=== PATIENT | female | born 1960 | race Caucasian/White ===

== ENCOUNTER → 2017-02-18 | Day surgery (SDC) | payer BC ==
[~2017-02-18] MED LIST: BREO IH; EVAMIST8.1 ML TOP; FENTANYL CITRATE/PF 100MCG/2 ML INJ ONE; LIDOCAINE HCL 2% LOCAL INJ 5 ML SDV VIAL INJ ONE; METOPROLOL SUCC25 MG PO; MIDAZOLAM HCL 2 MG/2 ML VIAL ONE; ONDANSETRON HCL INJ 2 MG/ML VIAL ONE; PANTOPRAZOLE SO40 MG PO; PROAIR HFA INH8.5 GM INH; PROGESTERONE100 MG PO; PROPOFOL IV EMULSION 10 MG/ML 50 ML VIAL ONE; SINGULAIR10 MG PO; SUMATRIPTAN SUC25 MG PO
--- NOTE | 2017-02-18 15:24 | Operative Report ---
DATE OF PROCEDURE: February 18, 2017 REFERRING PHYSICIAN: Dr. Aileen Joy. PROCEDURE PERFORMED: Esophagogastroduodenoscopy with esophageal dilatation. INDICATIONS FOR PROCEDURE: Dysphagia. MEDICATION: Patient was done under MAC. Please see anesthesiologist's note. PROCEDURE: With patient in the left lateral decubitus position, the flexible fiberoptic Olympus gastroscope was introduced into the esophagus under direct visualization without any difficulty. There was some patchy erythema noted in the distal esophagus. There was a minute nodule noted at the GE junction, and that was biopsied. Also, a mild stricture was noted at the GE junction, and that was dilated to size 52-[place] Bian[place]. The scope was then advanced with ease into the stomach. Mucosa overlying the antrum and the body revealed some diffuse erythema and low-grade edema, and biopsies were obtained and sent to stain for H. pylori. Pylorus appeared to be of normal contour and shape, was intubated with ease, and the scope was advanced all the way to the 2nd portion of the duodenum. The scope was then withdrawn slowly. Mucosa overlying the proximal 2nd portion and the duodenal bulb appeared to be within normal limits. The scope was then withdrawn back into the stomach and retroflexed, and mucosa overlying the fundus and the cardia appeared to be within normal limits. The scope was then straightened out. The stomach was decompressed. The scope was subsequently withdrawn. Patient tolerated procedure well. IMPRESSION: 1. Distal esophagitis. 2. Esophageal stricture at gastroesophageal junction dilated to size 52-[place]. 3. Nodule, gastroesophageal junction, biopsied. 4. Gastritis biopsied. Biopsies sent to stain for H. pylori. PLAN: Follow up histology. Initiate Protonix 40 mg 1 p.o. q.a.m. a.c. Job#: [id number] EV cc:AILEEN JOY MD
== END | disposition home or self-care (01) ==
LOC: OR 11:40
PROVIDERS: ATTEND Internal Medicine Gastroenterology
DX: K22.2 Esophageal obstruction (principal); K29.70 Gastritis, unspecified, without bleeding; K20.9 Esophagitis, unspecified; K31.89 Other diseases of stomach and duodenum; J45.909 Unspecified asthma, uncomplicated; Z01.810 Encounter for preprocedural cardiovascular examination; Z80.0 Family history of malignant neoplasm of digestive organs
CPT/HCPCS: 43239; 43450; 93005; J2001; J2250; J2405

== ENCOUNTER → 2017-03-07 | Day surgery (SDC) | payer BC ==
[~2017-03-07] MED LIST changes: +HYOSCYAMINE SULFATE 0.5 MG/ML AMP ONE; -ONDANSETRON HCL INJ 2 MG/ML VIAL ONE
--- NOTE | 2017-03-07 14:39 | Operative Report ---
DATE OF PROCEDURE: March 07, 2017 REFERRING PHYSICIAN: Dr. Aileen Joy PROCEDURE PERFORMED: Colonoscopy and polypectomy. INDICATIONS FOR COLONOSCOPY: Colorectal cancer screening. MEDICATION: Patient was done under MAC. Please see anesthesiologist's note. PROCEDURE: With the patient in the left lateral decubitus position, the flexible fiberoptic Olympus colonoscope was inserted into the rectum with ease and advanced all the way to the cecum. The scope was then withdrawn slowly. Mucosa overlying the cecum, ascending colon, transverse colon, and descending colon grossly appeared to be within normal limits. One polyp was hot biopsied from the sigmoid colon. There was some patchy areas of erythema and low-grade edema noted in the sigmoid colon, and biopsies were obtained. A solitary minute ulcer was also noted in the sigmoid that was biopsied. The rectum appeared to be within normal limits. The scope was then retroflexed into the distal rectum and small internal hemorrhoids were noted, none of which was actively bleeding. The scope was then straightened. The rectosigmoid area, as well as the distal rectal area were decompressed. The scope was subsequently withdrawn. Patient tolerated the procedure well. IMPRESSION 1. Sigmoid colon polyp, hot biopsied. 2. Ulcer of sigmoid colon, biopsied. 3. Mild patchy sigmoiditis. 4. Small internal hemorrhoids, none actively bleeding. PLAN: Follow up histology. Initiate high-fiber and low-fat diet. Initiate high-fiber supplement. Check TSH as patient has been complaining of increasing constipation. Patient will need a followup colonoscopy in 3 years. Job#: [id number] RI cc: AILEEN JOY MD
== END | disposition home or self-care (01) ==
LOC: OR 07:14
PROVIDERS: ATTEND Internal Medicine Gastroenterology
DX: Z12.11 Encounter for screening for malignant neoplasm of colon (principal); K63.5 Polyp of colon; K52.9 Noninfective gastroenteritis and colitis, unspecified; K63.3 Ulcer of intestine; K59.00 Constipation, unspecified; K64.8 Other hemorrhoids; K29.70 Gastritis, unspecified, without bleeding; K21.9 Gastro-esophageal reflux disease without esophagitis; K22.8 Other specified diseases of esophagus; K20.8 Other esophagitis; I10 Essential (primary) hypertension; J45.909 Unspecified asthma, uncomplicated; Z80.0 Family history of malignant neoplasm of digestive organs
CPT/HCPCS: 36415; 45380; 45384; 84443; J1980; J2001; J2250

== ENCOUNTER → 2021-05-03 | Day surgery (SDC) | payer BC ==
[~2021-05-03] MED LIST changes: -FENTANYL CITRATE/PF 100MCG/2 ML INJ ONE; -HYOSCYAMINE SULFATE 0.5 MG/ML AMP ONE; +HYOSCYAMINE SULFATE 0.5 MG/ML INJ ONE; +PROPOFOL IV EMULSION 10 MG/ML 20 ML VIAL ONE; -PROPOFOL IV EMULSION 10 MG/ML 50 ML VIAL ONE
[2021-05-03 09:15] VITALS: BP 102/63
== END | disposition home or self-care (01) ==
LOC: OR 06:58
PROVIDERS: ATTEND Internal Medicine Gastroenterology
DX: Z09 Encounter for follow-up examination after completed treatment for conditions other than malignant neoplasm (principal); K63.5 Polyp of colon; K64.8 Other hemorrhoids; U07.1 COVID-19; J45.909 Unspecified asthma, uncomplicated; I49.3 Ventricular premature depolarization; G43.909 Migraine, unspecified, not intractable, without status migrainosus; Z88.0 Allergy status to penicillin; Z01.810 Encounter for preprocedural cardiovascular examination; Z01.812 Encounter for preprocedural laboratory examination; Z79.899 Other long term (current) drug therapy
CPT/HCPCS: 45380; 93005; J1980; J2001; J2250; J2704; U0002; 45378

== ENCOUNTER → 2024-01-25 | Day surgery (SDC) | payer BC, OTHER ==
[~2024-01-25] MED LIST changes: +ADVAIR 100-501 EACH INH; +CALCIUM CARBON500 MG PO; +DOTTI1 EAC2 TD; -LIDOCAINE HCL 2% LOCAL INJ 5 ML SDV VIAL INJ ONE; -MIDAZOLAM HCL 2 MG/2 ML VIAL ONE; +MULTI-VITAMIN1 EACH PO; -PROPOFOL IV EMULSION 10 MG/ML 20 ML VIAL ONE; +TURMERIC 450-51 EACH; +VITAMIN D3 COM1 EACH PO
[2024-01-25] MEDS: LACTATED RINGER'S 1,000 ML ONE (11:50)
[2024-01-25 15:10] VITALS: BP 128/84; PULSE 86; RESP 18; O2SAT 98
[2024-01-25 16:23] LABS: CDIFF AG QUIK CHEK NEGATIVE (NEGATIVE); CDIFF TOX QUIK CHEK NEGATIVE (NEGATIVE)
[2024-01-26 07:54] LABS: C-REACTIVE PROTEIN <1 mg/L (0-10)
[2024-01-28 07:24] LABS: ENDOMYSIAL ANTIBODIES, IGA Negative (Negative); IMMUNOGLOBULIN A 68 mg/dL (87-352)
[2024-01-28 09:08] LABS: TISSUE TRANSGLUTAMINASE IGA AB <2 U/mL (0-3)
== END | disposition home or self-care (01) ==
LOC: OR 11:23
PROVIDERS: ATTEND Internal Medicine Gastroenterology
DX: K20.90 Esophagitis, unspecified without bleeding (principal); K29.70 Gastritis, unspecified, without bleeding; K52.9 Noninfective gastroenteritis and colitis, unspecified; K31.89 Other diseases of stomach and duodenum; K21.9 Gastro-esophageal reflux disease without esophagitis; K57.30 Diverticulosis of large intestine without perforation or abscess without bleeding; K62.89 Other specified diseases of anus and rectum; K64.8 Other hemorrhoids; I49.9 Cardiac arrhythmia, unspecified; J45.909 Unspecified asthma, uncomplicated; Z88.0 Allergy status to penicillin; Z01.810 Encounter for preprocedural cardiovascular examination; Z79.899 Other long term (current) drug therapy; Z98.61 Coronary angioplasty status
CPT/HCPCS: 43239; 43450; 45380; 82784; 83516; 83630; 83993; 86140; 86256; 87045; 87177; 87324; 87328; 87449; 93005; J1980; J2470; J7121; 45378